=== PATIENT | female | born 1980 | race Caucasian/White ===

== ENCOUNTER 2025-05-11 19:21 | Emergency (ER) | payer OTHER, SELFPAY ==
--- OUTSIDE RECORDS SUMMARY | 2025-05-11 19:32 | XMS_ITS | Clinical Summary ---
Author Organization [facility] Address [address] [place] [address], [address] [place] [address] Care Team Providers Care Corporate Sales Representative Name Role Phone Unavailable Primary Care Provider Unavailabl e Social History Tobacco Use Types Packs/Day Years Used Date Smoking Tobacco: Never Assessed Comments Unknown Sex and Gender Information Value Date Recorded Sex Assigned at Not on file Legal Sex Female 9:56 AM EST Gender Identity Not on file Sexual Orientation Not on file Plan of Treatment Not on file
[2025-05-11 19:54] VITALS: BP 104/69; PULSE 73; TEMP 36.7; O2SAT 99; BMI 25.8
--- NOTE | 2025-05-11 20:04 | ED_ITS ---
HPI HPI - General Adult General Chief complaint: Epistaxis Stated complaint: nose injury Time Seen by Provider: 05/11/25 20:02 Source: patient Mode of arrival: walk-in Limitations: no limitations History of Present Illness HPI narrative: dog bumped her head/nose with his head and now her nose is swollen Related Data Home Medications ?Medication ?Instructions ?Recorded ?Confirmed loratadine-pseudoephedrine ER 10 1 tab PO DAILY 05/11/25 mg-240 mg tablet,extended [id number] (AllerClear D-24hr) Allergies Allergy/AdvReac Type Severity Reaction Status Date / Time codeine Allergy Rash Verified 05/11/25 19:53 Opioid HPI Opioid Management Most Recent Opioid Data: 2 Last Pain Scale 7 Today, 19:54 Review of Systems 2 ROS0 Status of ROS 10 or more systems reviewed and unremark able except as noted in history and below PFSH PFSH Social History Little interest or pleasure in doing things: not at all Feeling down, depressed, or hopeless: not at all Exam Constitutional Vital Signs, click to edit/add: Last Vital Signs Temp 98.1 F 05/11/25 19:54 Pulse 73 05/11/25 19:54 Resp 05/11/25 19:54 BP 104/69 05/11/25 19:54 Pulse Ox 99 05/11/25 19:54 O2 Del Method Room Air 05/11/25 19:54 Common normals: oriented x3, healthy appearing, alert and well nourished [facility] Face and sinus images: 2 1. superficial lac 3mm. no swelling or ecchymosis Eye Common normals: PERRL, EOMs intact bilaterally and conjunctivae normal Respiratory Common normals: normal respiratory effort, no retractions, no use of accessory muscles and clear to auscultation bilaterally Cardio Common normals: regular rate, regular rhythm, S1 normal heart sound and S2 normal heart sound Extremity Common normals: normal to inspection and full ROM Neuro Common normals: oriented x3, CN's II-XII intact bilaterally, moves all extremities and no focal motor deficits Psych Appearance: grossly normal Course Vital Signs Vital signs: Vital Signs Temperature 98.1 F 05/11/25 19:54 Pulse Rate 73 05/11/25 19:54 Respiratory Rate 05/11/25 19:54 Blood Pressure 104/69 05/11/25 19:54 Pulse Oximetry 99 05/11/25 19:54 Oxygen Delivery Method Room Air 05/11/25 19:54 Temperature 98.1 F 05/11/25 19:54 Pulse Rate 73 05/11/25 19:54 Respiratory Rate 14 05/11/25 19:54 Blood Pressure 104/69 05/11/25 19:54 Pulse Oximetry 99 05/11/25 19:54 Oxygen Delivery Method Room Air 05/11/25 19:54 Medical Decision Making MDM Narrative Medical decision making narrative: presents after she was struck on her nose by her dogs head. Sustained small lac that was cleaned by nursing and steri strip applied. xray with evidence of nasal bone fracture. Patient did have small amount of blood in right nasal canal but no active bleeding. Given a tetanus and keflex . Discharged home to follow up with her doctor Discharge Plan Discharge Chief Complaint: Epistaxis Clinical Impression: Epistaxis, Fracture of nasal bone Patient Disposition: Home, Self-Care Prescriptions / Home Meds: No Action AllerClear D-24hr 10-240 mg tablet extended release 24 hr 1 tab PO DAILY Print Language: Armenian Instructions: Nasal Fracture (ED), Nosebleed (ED) Referrals: Jolynn Kolb MD [Primary Care Provider, Family Practice] - 1 week
--- NOTE | 2025-05-11 20:17 | XR_ITS ---
The [place] [id number] Patient Name: LILI CHIRINOS MRN: [id number] date: 1980 Sex: F Assigned Patient Location: ER Current Patient Location: ED.MAIN Accession/Order Number: [id number] Exam Date: 05/11/2025 20:30 Report Date: 05/12/2025 08:45 At the request of: MARYCHUY LOCKHART MD Procedure: XR nasal bones min 3V NASAL BONES -3 views CLINICAL HISTORY: trauma Villagomez and both lateral views were obtained. There are minimally displaced nasal bone fractures, without significant depression. The nasal spines are intact. There is no significant nasal septal deviation. As visualized, the paranasal sinuses are clear. There are no significant soft tissue findings. There is a left nasal piercing and right lip piercing. XR/XR nasal bones min 3V IMPRESSION: BILATERAL NASAL BONE FRACTURES Impression dictated by: Bibi Castellano M.D. 05/12/2025 8:45 AM Dictation Location: [place] [id number] Electronically authenticated by: [id number] Y Date: 05/12/2025 08:45
[2025-05-11] MEDS: DIPHTH,PERTUSS(ACELL),TET VAC 0.5 ML SYRINGE IM (20:49)
[2025-05-11] MEDS: CEPHALEXIN 500 MG CAPSULE PO (20:56)
== END 2025-05-11 21:14 | disposition home or self-care (01) ==
PROVIDERS: Emergency Provider Internal Medicine; PCP Family Medicine
DX: S02.2XXA Fracture of nasal bones, initial encounter for closed fracture (principal); S01.21XA Laceration without foreign body of nose, initial encounter; R04.0 Epistaxis; W54.1XXA Struck by dog, initial encounter; Z23 Encounter for immunization
CPT/HCPCS: 70160; 90471; 90715; 99284

== ENCOUNTER 2025-05-12 09:20 | Outpatient (OUT) | payer OTHER, SELFPAY ==
--- OUTSIDE RECORDS SUMMARY | 2025-05-06 11:49 | XMS_ITS | Continuity of Care Document ---
Author Organization [facility] Address [address] [place] [address] Phone Care Team Providers Care Home Appliance Technician Name Role Phone Jolynn Kolb MD Primary Care Provider Jolynn Kolb MD Attending Provider [phone] Care Teams Patient Care Team Team Status: Active Member Role Status Dates Jolynn Kolb MD Primary Care Provider Active Patient Care Team Team Status: Inactive Member Role Status Dates Jolynn Kolb MD Primary Care Provider Active Start: May 06, 2025 End: May 06, 2025 Jolynn Kolb MD Attending Provider Active St art: May 06, 2025 End: May 06, 2025 Chief Complaint and Reason for Visit Chief Complaint Admit Date wellness May 06, 2025 2:52pm Allergies, Adverse Reactions, Alerts Allergen Type Severity Reaction Last Updated Verified Status acetaminophen Allergy Unknown vomiting/rash 2024 2:59pm Yes Active cetirizine Allergy Unknown rash May 06, 2025 2:59pm Yes Active codeine Allergy Unknown vomiting/rash May 062024 2:59pm Yes Active hydrocodone Allergy Unknown vomiting/rash May 06, 2025 2:59pm Yes Active oxycodone Allergy Unknown vomiting/rash May 062024 2:59pm Yes Active Penicillins Allergy Unknown rash April 2:59pm Yes Active Social History Smoking Status Status Start Date End Date Date of Observa tion Smokes tobacco daily (finding) April 03, 2024 2:39pm Observation Status Observation Response Date of Response Legal Sex Female (finding) Sex Assigned At Female October Status N Tawanna 9th, 2025 Family History Relationship Condition Age at Onset Recorded Date/T maggie father Hypertension Unknown mother Hypertension Unknown Problems Active Problems Medical Problem Onset Date Status Screening mammogram for breast cancer Unknown Active Wellness examination Unknown Active Medications Medication Status Dose Units Route Directions Qty Days St art Date Stop Date End Date Instructions Adherence Lisinopril 20 mg tablet Discont inued MG PO Daily April 19, 2024 12:00a m Augus 2023 3:33p m FreeTextSig: Orally Once a day; Note: Source Status: Taking; Provider: Taylor Valdivia ( ) Bromphenira mine-Pseudo eph-Dm (Bromfed Dm) 2-30-10 mg/5 mL syrup Discont inued 5 ML PO EVERY 4-6 HOURS as needed April 19, 2024 12:00a m Augus 2023 3:33p m Loratadine (Claritin) 10 mg tablet Active 10 MG PO Daily 2024 12:00a m Complies with drug therapy Vital Signs Vital Reading Result Reference Range Collection Date/Time Height 64.5 [in_i] May 06, 2025 2:58pm Weight 71.83 kg May 06, 2025 2:58pm Heart Rate 78 /min 60-100 May 06, 2025 2:58pm BP Systolic 143 mm[Hg] 100-140 May 06, 2025 2:58pm BP Diastolic 80 mm[Hg] 60-100 May 06, 2025 2:58pm BMI (Body Mass Index) 26.7 kg/m2 2024 2:58pm Advance Directives Advance Directive Response Recorded Date/ Time Advance Directives No April 03 2 024 2:39pm Insurance Providers Guarantor Lore Simms Address [address] [place] [id number] Contact Info. Home Phone: Payer Policy Id Subscriber's Name Subscriber Id Effectiv e Date Expiration Date [employer] [id number] Jori Mendez [id number] Encounters Encounter Location(s) Arrival/Admit Date Discharge/Depart Date Provider(s) Departed Physician/Prov ider Office Visit -[facility] May 06, 2025 2:52pm May 06, 2025 3:48pm Jolynn Kolb MD
--- OUTSIDE RECORDS SUMMARY | 2025-05-12 09:24 | XMS_ITS | Clinical Summary ---
Author Organization [facility] Address [address] [place] [address], [address] [place] [address] Care Team Providers Care Publicity Consultant Name Role Phone Unavailable Primary Care Provider [...]
--- NOTE | 2025-05-12 09:27 | MM_ITS ---
Patient Name: LILI CHIRINOS MR#: [id number] : 1980 Exam Date: 05/12/2025 Ordering Doctor: DR CONNOR LOZANO M.D. RADIOLOGY REPORT PROCEDURE: MM TOMOSYNTHESIS SCREENING BI COMPARISON: None. INDICATIONS: Screening for malignant neoplasm Calculator Name NCI Breast Cancer Risk Assessment Tool 5 Year Breast Cancer Risk 0.80% Lifetime Breast Cancer Risk 9.70% Personal Breast Cancer No Personal Ovarian Cancer No Treatments None Family Cancers Cousin-maternal with testicular cancer at age 26. LOCATION: [facility] BREAST COMPOSITION: The breasts are heterogeneously dense, which may obscure small masses. FINDINGS: RIGHT BREAST: No significant suspicious finding. LEFT BREAST: No significant suspicious finding. DIAGNOSTIC CATEGORY 1--NEGATIVE. RECOMMENDATIONS: ROUTINE MAMMOGRAM AND CLINICAL EVALUATION IN 12 MONTHS. Dictated by: Zack Reyes MD on 05/13/2025 at 12:10 Approved by: Zack Reyes MD on 05/13/2025 at 12:11
== END 2025-05-12 09:21 | disposition home or self-care (01) ==
LOC: MAMMO 09:22
PROVIDERS: PCP Family Medicine; Visit Provider Family Medicine
DX: Z12.31 Encounter for screening mammogram for malignant neoplasm of breast (principal); Z80.43 Family history of malignant neoplasm of testis
CPT/HCPCS: 77063; 77067